=== PATIENT | female | born 1975 | race Two or more races ===

== ENCOUNTER 2022-01-26 04:35 | Emergency (ER) | payer MEDICAID ==
[~2022-01-26] VITALS: Ht 152.4 cm; Wt 73.6 kg
[2022-01-26 06:48] LABS: Basophils # (auto) 0 10 ^3/uL (0-0.2); Basophils % (auto) 0.2 % (0.0-2.0); Eosinophils # (auto) 0.1 10 ^3/uL (0-0.8); Eosinophils % (auto) 0.3 % (0.0-7.0); Hemoglobin 13.4 g/dL (12.2-16.2); Lymphocytes # (auto) 1.1 10 ^3/uL (0.4-5.4); Lymphocytes % (auto) 6.9 % (10.0-50.0); Mean Corpuscular Hemoglobin 29.4 pg (28.0-32.0); Mean Corpuscular Hgb Conc. 33.5 g/dL (32.0-36.0); Mean Corpuscular Volume 87.9 fL (80.0-100.0); Monocytes # (auto) 0.5 10 ^3/uL (0-1.3); Monocytes % (auto) 3.1 % (0.0-12.0); Neutrophils % (auto) 89.5 % (37.0-80.0); Nucleated Red Blood Cells % 0.1 %; Red Blood Cells 4.56 10^6/uL (4.0-5.20); Red Cell Distribution Width 13.3 % (11.8-14.3); White Blood Cell 15.6 10^3/uL (4.4-10.8)
[2022-01-26 07:12] LABS: Potassium 4.2 mmol/L (3.5-5.1)
[2022-01-26 07:13] LABS: Albumin 4.1 g/dL (3.4-5.0); Calcium 9.6 mg/dL (8.5-10.1)
[2022-01-26 07:22] LABS: Bilirubin, Total 0.4 mg/dL (0.2-1.0); Total Protein 8.2 g/dL (6.4-8.2)
[2022-01-26 07:51] LABS: Urine Bacteria FEW /hpf (None Seen); Urine Blood Negative /uL (Negative); Urine Hyaline Cast FEW /lpf (0 - 2); Urine Mucus FEW (None Seen); Urine Specific Gravity 1.023 (1.001-1.035); Urine WBC 7 /hpf (0 - 5)
[2022-01-26] MEDS ORDERED: NITR-87 PO (11:07)
[2022-01-26 11:15] VITALS: BP 106/78
== END 2022-01-26 11:35 | disposition home or self-care (01) ==
LOC: ER 04:35
DX: N39.0 Urinary tract infection, site not specified (principal); E78.5 Hyperlipidemia, unspecified; Z88.6 Allergy status to analgesic agent
CPT/HCPCS: 36415; 74176; 76830; 76856; 80053; 81001; 83690; 85025

== ENCOUNTER 2023-09-29 11:13 | Emergency (ER) | payer MEDICAID ==
[~2023-09-29] VITALS: Ht 152.4 cm; Wt 64.4 kg
[~2023-09-29 11:13] MED LIST: NITR-87 PO
[2023-09-29 13:05] LABS: Urine Bacteria FEW /hpf (None Seen); Urine Blood Negative /uL (Negative); Urine Clarity Clear (Clear); Urine Protein, UAD Negative (Negative); Urine Specific Gravity 1.006 (1.001-1.035); Urine Urobilinogen Normal (Negative); Urine WBC <1 /hpf (0 - 5)
[2023-09-29 13:06] LABS: Urine Color Yellow (Yellow)
[2023-09-29 13:46] LABS: Basophils # (auto) 0 10 ^3/uL (0-0.2); Basophils % (auto) 0.2 % (0.0-2.0); Eosinophils # (auto) 0.1 10 ^3/uL (0-0.8); Eosinophils % (auto) 0.6 % (0.0-7.0); Hematocrit 40.6 % (36.0-46.0); Hemoglobin 13.7 g/dL (12.2-16.2); Lymphocytes # (auto) 1.2 10 ^3/uL (0.4-5.4); Lymphocytes % (auto) 9.2 % (10.0-50.0); Mean Corpuscular Hgb Conc. 33.8 g/dL (32.0-36.0); Mean Corpuscular Volume 82.9 fL (80.0-100.0); Monocytes # (auto) 0.5 10 ^3/uL (0-1.3); Monocytes % (auto) 3.8 % (0.0-12.0); Neutrophils % (auto) 86.2 % (37.0-80.0); Nucleated Red Blood Cells % 0.1 %; White Blood Cell 12.8 10^3/uL (4.4-10.8)
[2023-09-29 13:56] LABS: Alanine Aminotransferase 34 U/L (7-40); Albumin 4.8 g/dL (3.2-4.8); Alkaline Phosphatase 91 U/L (46-116); Anion Gap 8 (5-15); Aspartate Aminotransferase 19 U/L (13-40); BUN/Creatinine Ratio 6.7 (10.0-20.0); Bilirubin, Total 0.6 mg/dL (0.2-1.0); Blood Urea Nitrogen 7 mg/dL (9-23); Calcium 9.5 mg/dL (8.7-10.4); Carbon Dioxide 23 mmol/L (20-30); Chloride 105 mmol/L (98-107); Glucose 109 mg/dL (74-106); Potassium 4.9 mmol/L (3.5-5.1); Sodium 136 mmol/L (136-145); Total Protein 7.9 g/dL (5.7-8.2)
[2023-09-29 14:47] VITALS: BP 134/89; PULSE 84; RESP 18; TEMP 99; O2SAT 99
[2023-09-29] MEDS ORDERED: OMEP-434 PO (14:53)
[2023-09-29] MEDS ORDERED: IBUP-1454 PO (14:53)
[2023-09-29] MEDS: KETOROLAC TROMETH 60MG/2ML VIAL IM ONE (15:07)
== END 2023-09-29 15:24 | disposition home or self-care (01) ==
LOC: ER 11:13
DX: K80.20 Calculus of gallbladder without cholecystitis without obstruction (principal); K42.9 Umbilical hernia without obstruction or gangrene; E78.5 Hyperlipidemia, unspecified; E07.9 Disorder of thyroid, unspecified; Z88.1 Allergy status to other antibiotic agents
CPT/HCPCS: 36415; 74176; 80053; 81001; 81025; 82962; 85025; 93005; 96372; 99285; J1885

== ENCOUNTER 2024-01-18 01:22 | Inpatient (IN) | payer MEDICAID ==
[~2024-01-18] VITALS: Ht 152.4 cm; Wt 71.1 kg
[~2024-01-18 01:22] MED LIST changes: +IBUP-1454 PO; +OMEP-434 PO
--- NOTE | 2024-01-18 01:40 | ED.PDOC ---
GI ASSESSMENT HPI Comments 48-year-old female who came to ER for abdominal pain. Patient states she has been having abdominal pain for the past week. Described pain to be intermittent, diffuse, nonradiating, associated abdominal distention, bloatedness, and associated episodes of nausea and vomiting. Patient also complaining back pains dysuria, and urinary frequency. Chief Complaint: Abdominal pain Time Seen by MD: 01:39 Primary Care Provider: HEATH Scott Notes: Nurses Notes Allergies: Coded Allergies: Aspirin (Verified Allergy, Unknown, 01/26/22) Home Meds Active Scripts Omeprazole Magnesium (Omeprazole) 20 Mg Tab, 40 MG PO DAILY, #30 TAB Prov:DAIANA LOPES 09/29/23 Ibuprofen (Ibuprofen) 600 Mg Tab, 1 TAB PO TID, #30 TAB Prov:DAIANA LOPES 09/29/23 Nitrofurantoin Monohydrate Mac (Macrobid) 100 Mg Cap, 100 MG PO BID for 7 Days, #14 CAP Prov:ED GAN MD 01/26/22 Information Source: Patient Mode of Arrival: Ambulatory Timing: Days Duration: Intermittent Prehospital treatment: None Quality: Aching Vomitus: Watery Stool: Normal Severity: Moderate Recent: None Recent Hx of: Abdominal Surgery Pain Location: Diffuse Associated sign and symptoms: Nausea, Vomiting, Abdominal Pain Past Medical History PAST MEDICAL HISTORY: Gallstones, High Lipids, Thyroid Surgical History (Other): Breast implants, abdominoplasty SALES MARKETING COORDINATOR History: No Pertinent SALES MARKETING COORDINATOR History Family History Family History: Reviewed,noncontributory to illness Social History Smoker: Non-Smoker Alcohol: Denies ETOH Use Drugs: Denies Drug Use Lives In: Home Constitutional: denies: chills, diaphoresis, fatigue, fever, malaise, sweats, weakness, others EENTM: denies: blurred vision, double vision, ear bleeding, ear discharge, ear drainage, ear pain, ear ringing, eye pain, eye redness, hearing loss, mouth pain, mouth swelling, nasal discharge, nose bleeding, nose congestion, nose pain, photophobia, tearing, throat pain, throat swelling, voice changes, others Respiratory: denies: cough, hemoptysis, orthopnea, SOB at rest, shortness of breath, SOB with excertion, stridor, wheezing, others Cardiovascular: denies: chest pain, dizzy spells, diaphoresis, Dyspnea on exertion, edema, irregular heart beat, left arm pain, lightheadedness, palpitations, PND, syncope, others Gastrointestinal: reports: abdomen distended, abdominal pain, nausea, vomiting; denies: blood streaked bowels, constipated, diarrhea, dysphagia, difficulty swallowing, hematemesis, melena, poor appetite, poor fluid intake, rectal bleeding, rectal pain, others Genitourinary: reports: dysuria, frequency; denies: abnormal vagina bleeding, burning, dyspareunia, flank pain, hematuria, incontinence, pain, , vagina discharge, urgency, others Neurological: denies: dizziness, fainting, headache, left sided numbness, left sided weakness, numbness, paresthesia, pre-existing deficit, right sided numbness, right sided weakness, seizure, speech problems, tingling, tremors, weakness, others Musculoskeletal: reports: back pain; denies: gout, joint pain, joint swelling, muscle pain, muscle stiffness, neck pain, others Integumetry: denies: bruises, change in color, change in hair/nails, dryness, laceration, lesions, lumps, rash, wounds, others Allergic/Immunocompromised: denies: Difficulty Healing, Frequent Infections, Hives, Itching, others Hematologic/Lymphatic: denies: anemia, blood clots, easy bleeding, easy bruising, swollen glands, others Endocrine: denies: excessive hunger, excessive sweating, excessive thirst, excessive urination, flushing, intolerance to cold, intolerance to heat, unexplained weight gain, unexplained weight loss, others Psychiatric: denies: anxiety, bipolar disorder, depression, hopeless, panic disorder, schizophrenia, sleepless, suicidal, others Physical Exam General Appearance: No Apparent Distress, Normal HEENT: Normal ENT Inspection, Pharynx Normal, TMs Normal Neck: Full Range of Motion, Non-Tender, Normal, Normal Inspection Respiratory: Chest Non-Tender, Lungs Clear, No Accessory Muscle Use, No Respiratory Distress, Normal Breath Sounds Cardiovascular: No Edema, No JVD, No Murmur, No Gallop, Normal Peripheral Pulses, Regular Rate/Rhythm Breast Exam: Deferred Gastrointestinal: Distended, Epigastric, No Organomegaly, No Pulsatile Mass, Normal Bowel Sounds, Soft, Tenderness Genitalia: Deferred Pelvic: Deferred Rectal: Deferred Extremities: No calf tenderness, Normal capillary refill, Normal inspection, Normal range of motion, Non-tender, No pedal edema Musculoskeletal : Apperance: Normal Neurologic: Alert, 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 Was a procedure done?: No GI differential Dx Differential Diagnosis: Cholecystitis, Constipation, Diverticular disease, Gastritis/PUD, Gastroenteritis, Pancreatitis, UTI, Urolithiasis X-Ray, Labs, Meds, VS Vital Signs Date Time Temp Pulse Resp B/P (MAP) Pulse Ox O2 Delivery O2 Flow Rate FiO2 01/18/24 03:55 76 16 128/80 (96) 99 01/18/24 03:52 78 16 128/80 01/18/24 02:41 90 16 126/79 01/18/24 02:29 99.4 90 20 126/79 (95) 98 99.4 01/18/24 02:29 90 20 98 Room Air 01/18/24 01:31 98.9 90 18 143/92 (109) 96 Lab Test 01/18/24 01:47 01/18/24 00:35 Range/Units White Blood Count 12.2 H 4.4-10.8 10^3/uL Red Blood Count 4.59 4.0-5.20 10^6/uL Hemoglobin 12.6 12.2-16.2 g/dL Hematocrit 37.4 36.0-46.0 % Mean Corpuscular Volume 81.5 80.0-100.0 fL Mean Corpuscular Hemoglobin 27.6 L 28.0-32.0 pg Mean Corpuscular Hemoglobin Concent 33.8 32.0-36.0 g/dL Red Cell Distribution Width 14.6 H 11.8-14.3 % Platelet Count 277 140-450 10^3/uL Mean Platelet Volume 8.0 6.9-10.8 fL Neutrophils (%) (Auto) 81.5 H 37.0-80.0 % Lymphocytes (%) (Auto) 12.7 10.0-50.0 % Monocytes (%) (Auto) 4.6 0.0-12.0 % Eosinophils (%) (Auto) 0.9 0.0-7.0 % Basophils (%) (Auto) 0.3 0.0-2.0 % Neutrophils # (Auto) 9.9 H 1.6-8.6 10 ^3/uL Lymphocytes # (Auto) 1.5 0.4-5.4 10 ^3/uL Monocytes # (Auto) 0.6 0-1.3 10 ^3/uL Eosinophils # (Auto) 0.1 0-0.8 10 ^3/uL Basophils # (Auto) 0 0-0.2 10 ^3/uL Nucleated Red Blood Cells 0.0 % Sodium Level 140 136-145 mmol/L Potassium Level 4.0 3.5-5.1 mmol/L Chloride Level 105 98-107 mmol/L Carbon Dioxide Level 27 20-31 mmol/L Anion Gap 8 5-15 Blood Urea Nitrogen 12 9-23 mg/dL Creatinine 1.28 H 0.550-1.02 mg/dL Glomerular Filtration Rate Calc 52 >90 mL/min BUN/Creatinine Ratio 9.4 L 10.0-20.0 Serum Glucose 135 H 74-106 mg/dL Calcium Level 9.7 8.7-10.4 mg/dL Urine Color Light-yellow Yellow Urine Clarity Clear Clear Urine pH 6.5 5.0-9.0 Urine Specific [place] 1.019 1.001-1.035 Urine Protein Negative Negative Urine Ketones Negative Negative Urine Blood 2+ H Negative /uL Urine Nitrite Negative Negative Urine Bilirubin Negative Negative Urine Urobilinogen Normal Negative mg/dL Urine Leukocyte Esterase Negative Negative /uL Urine RBC 104 0 - 4 /hpf Urine WBC 1 0 - 5 /hpf Urine Squamous Epithelial Cells Few <5 /hpf Urine Bacteria None seen None Seen /hpf Urine Glucose Normal Normal mg/dL Current Medications Medications (Trade) Dose Ordered Sig/Bakari Route Start Time Stop Time Status Last Admin Sodium Chloride 1,000 ml @ 1,000 mls/hr Q1H ONCE IV 01/18/24 01:45 01/18/24 02:44 DC 01/18/24 02:35 Ondansetron HCl (Zofran) 4 mg ONCE ONCE IV 01/18/24 01:45 01/18/24 01:46 DC 01/18/24 02:42 Morphine Sulfate 4 mg ONCE ONCE IV 01/18/24 01:45 01/18/24 01:46 DC 01/18/24 02:41 Time of 1ST Reevaluation: 01:36 Reevaluation 1ST: Unchanged Patient Education/Counseling: Diagnosis, Treatment Family Education/Counseling: No Family Present Departure 1 Departure Time of Disposition: 05:00 (Patient presented with abdominal pain that was concerning for possible appendicits, gastritis, cholecystitis, colitis, gastroenteritis, sbo, or orther possible surgical emergency. Data: 1. I ordered and reviewed the result of at least 3 labs including a CBC, BMP, and Urinalysis. 2. I independently interpreted the following tests: CT Abdoment and Pelvis is concerning for appendicolith.Risk:This patient has a high risk of morbidity due to further diagnostic testing or treatment and may suffer from an acute abdominal process disorder. Workup reveals history for he will return, UTI versus early appendicitis we will treat patient with antibiotics and patient should be admitted for further workup. and possible expert consultation. ) Impression: Primary Impression: Hematuria Qualified Codes: R31.29 - Other microscopic hematuria Additional Impressions: Acute abdominal pain Cholelithiasis Qualified Codes: K80.20 - Calculus of gallbladder without cholecystitis without obstruction Disposition: ADMITTED INPATIENT Admit to: Med Surg Condition: Serious Critical Care Note Critical Care Time?: No Stability Stability form required: No Heart Score Heart Score: Heart Score Response (Comments) Value History N/A 0 EKG N/A 0 Age N/A 0 Risk Factors N/A 0 Troponin N/A 0 Total 0 I personally scribed for CAMILLE PARK MD ([email or web address]) on 01/18/24 at 01:40. Electronically submitted by Demar Agudelo ([email or web address]). CAMILLE PARK MD Jan 18, 2024 01:40
[2024-01-18 01:48] LABS: Urine Bacteria None Seen /hpf (None Seen)
[2024-01-18 01:53] LABS: Basophils # (auto) 0 10 ^3/uL (0-0.2); Eosinophils # (auto) 0.1 10 ^3/uL (0-0.8); Mean Corpuscular Volume 81.5 fL (80.0-100.0); Red Cell Distribution Width 14.6 % (11.8-14.3)
[2024-01-18 01:55] LABS: Basophils % (auto) 0.3 % (0.0-2.0); Eosinophils % (auto) 0.9 % (0.0-7.0); Hematocrit 37.4 % (36.0-46.0); Hemoglobin 12.6 g/dL (12.2-16.2); Lymphocytes # (auto) 1.5 10 ^3/uL (0.4-5.4); Lymphocytes % (auto) 12.7 % (10.0-50.0); Mean Corpuscular Hemoglobin 27.6 pg (28.0-32.0); Mean Corpuscular Hgb Conc. 33.8 g/dL (32.0-36.0); Monocytes # (auto) 0.6 10 ^3/uL (0-1.3); Monocytes % (auto) 4.6 % (0.0-12.0); Neutrophils # (auto) 9.9 10 ^3/uL (1.6-8.6); Neutrophils % (auto) 81.5 % (37.0-80.0); Platelet Count (auto) 277 10^3/uL (140-450); Red Blood Cells 4.59 10^6/uL (4.0-5.20); White Blood Cell 12.2 10^3/uL (4.4-10.8)
[2024-01-18 02:03] LABS: Chloride 105 mmol/L (98-107); Sodium 140 mmol/L (136-145)
[2024-01-18 02:04] LABS: Anion Gap 8 (5-15); Calcium 9.7 mg/dL (8.7-10.4); Carbon Dioxide 27 mmol/L (20-31)
[2024-01-18 02:09] LABS: BUN/Creatinine Ratio 9.4 (10.0-20.0); Blood Urea Nitrogen 12 mg/dL (9-23); Glucose 135 mg/dL (74-106)
[2024-01-18 02:18] LABS: Urine Blood 2+ /uL (Negative); Urine Clarity Clear (Clear); Urine Color Light-Yellow (Yellow); Urine Protein, UAD Negative (Negative); Urine Specific Gravity 1.019 (1.001-1.035); Urine Urobilinogen Normal (Negative); Urine WBC 1 /hpf (0 - 5); Urine pH 6.5 (5.0-9.0)
[2024-01-18] MEDS: SODIUM CHLORIDE 0.9% 1,000 ML IV ONE (02:35)
[2024-01-18] MEDS: MORPHINE SULFATE 4 MG/ML SYR/VIAL IV ONE (02:41)
[2024-01-18] MEDS: ONDANSETRON HCL 4 MG/2 ML VIAL IV ONE (02:42)
--- NOTE | 2024-01-18 04:39 | DVH ---
Examination: ABPL CLINICAL INDICATION: lower abdominal pain COMPARISON: None. CONTRAST USED: None. TECHNIQUE: A plain CT study of the abdomen and pelvis is performed. The examination was performed w ith [address] scan done according to ALARA (As Low as Reasonably Achievable). Multiplana r reconstructions were obtained. FINDINGS: CT ABDOMEN: Lung Base: The evaluation of lung bases demonstrates no focal infiltrates or pleural effusion. Unenhanced Liver: The liver is normal in size. Mild hepatic steatosis. There is no intrahepatic bili jordan radicle dilatation. Gallbladder: The gallbladder is distended and shows a 25 mm sized hyperdense lamellated calculus wit hin. The common bile duct is not dilated. Unenhanced Pancreas: The pancreas is normal in size and shape. No focal lesion is seen within. Th e peripancreatic fat-planes are normal. Unenhanced Spleen: The spleen is normal in size and does not show any focal abnormality. Retroperitoneum: Both adrenal glands are normal in size and morphology in this unenhanced CT scan. There is no significant retroperitoneal lymphadenopathy. The kidneys are normal in size with no hydr onephrosis or renal calculi. Vessels: Aorta, IVC and the mesenteric vessels cannot be commented in this unenhanced CT scan. Stomach and Bowel: The bowel loops are unremarkable. There is no ascites. Small paraumbilical herni a is noted containing omental fat, size of the defect is 12 mm. Skeletal System: Dorsolumbar spine and the pelvic bone appear unremarkable. CT PELVIS: Appendix: Small subtle appendicolith noted. Colon: Multiple tiny diverticuli are seen along the ascending, transverse, descending, sigmoid colon and rectum. Bladder: The urinary bladder is unremarkable. Pelvic Organs: Uterus and both ovaries appear unremarkable. No pelvic lymphadenopathy is identified. No abnormal fluid collection is seen. IMPRESSION: 1. No abdominal mass or adenopathy. 2. No ascites. 3. No free air or inflammatory changes. 4. Cholelithiasis without evidence of cholecystitis. 5. Colonic diverticulosis without evidence of diverticulitis. 6. Mild hepatic steatosis. 7. A small paraumbilical hernia is noted containing omental fat. 8. Small subtle appendicolith noted. Electronically Signed 01/18/2024 04:30 Jose Yin
[2024-01-18] MEDS: cefTRIAXone 1GM/50ML D5W 50 ML IV ONE (05:08)
[2024-01-18] MEDS ORDERED: HYDROcodone-ACET 5/325MG TAB PO PRN (06:15)
[2024-01-18] MEDS ORDERED: ACETAMINOPHEN 325 MG TAB PO PRN (06:15)
[2024-01-18] MEDS ORDERED: DOCUSATE SOD 100 MG CAP PO PRN (06:15)
[2024-01-18] MEDS ORDERED: MORPHINE SULFATE INJ 2 MG/ml SYRG IV PRN ×2 (06:15→06:45)
[2024-01-18 06:16] VITALS: BP 115/75; PULSE 75; RESP 20; TEMP 98.3; O2SAT 96
--- NOTE | 2024-01-18 06:43 | DVHHP2 ---
History of Present Illness Reason for Visit: Acute abdominal pain History of Present Illness The patient is a 48-year-old female with past medical history of gallstone, hyperlipidemia, and thyroid disease who presented to [facility] ED with complaint of abdominal pain. Patient described pain to be intermittent, diffuse, nonradiating, associated abdominal distention, bloating, and associated episodes of nausea and vomiting, getting worse that prompted this visit. Patient was seen and evaluated in the ED, laboratory data shows WBC 12.2, platelets 277, sodium 140, potassium 4.0, BUN 12, creatinine 1.28, glucose 135, blood pressure 128/80, heart rate 76, temperature 99.4 F, O2 saturation 99% on room air. Abdomen/pelvis CT revealing cholelithiasis without evidence of cholecystitis, colonic diverticulosis without evidence of diverticulitis, mild hepatic steatosis. Please see medication orders section in the computer. On my assessment, patient denied chest pain, no headache, no dizziness, no diaphoresis, no shortness a breath, no abdominal pain, nausea, or vomiting at this moment, no fever, no chills. No other modifying factor or other associated signs and symptoms noted. Patient was admitted for further evaluation and medical management. Past Medical History Gallstones, High Lipids, Thyroid Past Surgical History Breast implants, abdominoplasty Family History Reviewed, noncontributory to the management of this case. Past Social History The patient lives at home, denies smoking, alcohol or illicit drugs abuse. Review of Systems Constitutional: No: Fever, Chills, Sweats, Weakness, Malaise, Other Eyes: No: Pain, Vision change, Conjunctivae inflammation, Eyelid inflammation, Other, Redness ENT: No: Ear pain, Ear discharge, Nose pain, Nose discharge, Nose congestion, Mouth pain, Mouth swelling, Throat pain, Throat swelling, Other Respiratory: No: Cough, Dry, Shortness of breath, SOB with excertion, Wheezing, Hemoptysis, Pleuritic Pain, Sputum, Wheezing, Other Cardiovascular: No: Chest Pain, Palpitations, Orthopnea, Paroxysmal Noc. Dyspnea, Edema, Lt Headedness, Other Gastrointestinal: Nausea, Vomiting, Abdominal Pain, Other (Distended abdomen); No: Diarrhea, Constipation, Melena, Hematochezia Genitourinary: Dysuria, Frequency; No Incontinence, No Hematuria, No Retention, No Other Musculoskeletal: back pain; No: other, neck pain, shoulder pain, arm pain, hand pain, leg pain, foot pain Skin: No: Rash, Lesions, Jaundice, Bruising, Other Neurological: No: Weakness, Numbness, Incoordination, Change in speech, Confusion, Seizures, Other Allergies: Coded Allergies: Aspirin (Verified Allergy, Unknown, 01/26/22) Medications Current Medications Medications Dose Ordered Sig/Bakari Route Start Time Stop Time Status Last Admin Dose Admin Pantoprazole Sodium 40 mg DAILY IV 01/18/24 10:00 Ceftriaxone Sodium 50 ml @ 100 mls/hr DAILY@09 IV 01/18/24 09:00 Sodium Chloride 10 ml Q8HR IV 01/18/24 14:00 Acetaminophen/ Hydrocodone Bitart 1 tab Q4HP PRN PO 01/18/24 06:15 Ondansetron HCl 4 mg Q4HP PRN IV 01/18/24 06:15 Docusate Sodium 100 mg BIDPRN PRN PO 01/18/24 06:15 Acetaminophen 650 mg Q6HP PRN PO 01/18/24 06:15 Morphine Sulfate 2 mg Q4HPRN PRN IV 01/18/24 06:15 Exam Vital Signs Vital Signs Date Time Temp Pulse Resp B/P (MAP) Pulse Ox O2 Delivery O2 Flow Rate FiO2 01/18/24 06:16 98.3 75 20 115/75 (88) 96 98.3 01/18/24 02:29 Room Air General Appearance: Alert, Oriented X3, Cooperative, No acute distress HEENT: Atraumatic, PERRLA, EOMI, Mucous membr. moist/pink Respiratory: Clear to auscultation, Normal air movement Cardiovascular: Regular rate, Normal S1, Normal S2, No murmurs Abdominal: Normal bowel sounds, Soft, No hepatospenomegaly, No masses, Other (Reports tenderness) Extremities: No clubbing, No cyanosis, No edema, Normal pulses, No tenderness/swelling Skin: No rashes, No breakdown, No significant lesion Neuro: Normal gait, Normal speech, Strength at 5/5 X4 ext, Normal tone, Sensation intact, Cranial nerves 3-12 NL, Reflexes 2+ Psych/Mental Status: Mental status NL, Mood NL Labs/Xrays Labs Test 01/18/24 01:47 01/18/24 00:35 Range/Units White Blood Count 12.2 H 4.4-10.8 10^3/uL Red Blood Count 4.59 4.0-5.20 10^6/uL Hemoglobin 12.6 12.2-16.2 g/dL Hematocrit 37.4 36.0-46.0 % Mean Corpuscular Volume 81.5 80.0-100.0 fL Mean Corpuscular Hemoglobin 27.6 L 28.0-32.0 pg Mean Corpuscular Hemoglobin Concent 33.8 32.0-36.0 g/dL Red Cell Distribution Width 14.6 H 11.8-14.3 % Platelet Count 277 140-450 10^3/uL Mean Platelet Volume 8.0 6.9-10.8 fL Neutrophils (%) (Auto) 81.5 H 37.0-80.0 % Lymphocytes (%) (Auto) 12.7 10.0-50.0 % Monocytes (%) (Auto) 4.6 0.0-12.0 % Eosinophils (%) (Auto) 0.9 0.0-7.0 % Basophils (%) (Auto) 0.3 0.0-2.0 % Neutrophils # (Auto) 9.9 H 1.6-8.6 10 ^3/uL Lymphocytes # (Auto) 1.5 0.4-5.4 10 ^3/uL Monocytes # (Auto) 0.6 0-1.3 10 ^3/uL Eosinophils # (Auto) 0.1 0-0.8 10 ^3/uL Basophils # (Auto) 0 0-0.2 10 ^3/uL Nucleated Red Blood Cells 0.0 % Sodium Level 140 136-145 mmol/L Potassium Level 4.0 3.5-5.1 mmol/L Chloride Level 105 98-107 mmol/L Carbon Dioxide Level 27 20-31 mmol/L Anion Gap 8 5-15 Blood Urea Nitrogen 12 9-23 mg/dL Creatinine 1.28 H 0.550-1.02 mg/dL Glomerular Filtration Rate Calc 52 >90 mL/min BUN/Creatinine Ratio 9.4 L 10.0-20.0 Serum Glucose 135 H 74-106 mg/dL Calcium Level 9.7 8.7-10.4 mg/dL Urine Color Light-yellow Yellow Urine Clarity Clear Clear Urine pH 6.5 5.0-9.0 Urine Specific [place] 1.019 1.001-1.035 Urine Protein Negative Negative Urine Ketones Negative Negative Urine Blood 2+ H Negative /uL Urine Nitrite Negative Negative Urine Bilirubin Negative Negative Urine Urobilinogen Normal Negative mg/dL Urine Leukocyte Esterase Negative Negative /uL Urine RBC 104 0 - 4 /hpf Urine WBC 1 0 - 5 /hpf Urine Squamous Epithelial Cells Few <5 /hpf Urine Bacteria None seen None Seen /hpf Urine Glucose Normal Normal mg/dL PATIENT: CORY YING ACCT: [id number] UNIT: [id number] : 1975 LOC: ER ROOM / BED: / AGE / SEX: 48 / F ADM STATUS: REG ER SERVICE [id number] ORDERING PHYSICIAN: CAMILLE PARK MD PROCEDURE(s): ABPL - CT AB PEL WO CON-NO ORAL OR IV REASON: lower abdominal pain ORDER NUMBER(s): [id number], ACCESSION NUMBER(s): [id number] Examination: ABPL CLINICAL INDICATION: lower abdominal pain COMPARISON: None. CONTRAST USED: None. TECHNIQUE: A plain CT study of the abdomen and pelvis is performed. The examination was performed with [address] scan done according to ALARA (As Low as Reasonably Achievable). Multiplanar reconstructions were obtained. FINDINGS: CT ABDOMEN: Lung Base: The evaluation of lung bases demonstrates no focal infiltrates or pleural effusion. Unenhanced Liver: The liver is normal in size. Mild hepatic steatosis. There is no intrahepatic biliary radicle dilatation. Gallbladder: The gallbladder is distended and shows a 25 mm sized hyperdense lamellated calculus within. The common bile duct is not dilated. Unenhanced Pancreas: The pancreas is normal in size and shape. No focal lesion is seen within. The peripancreatic fat-planes are normal. Unenhanced Spleen: The spleen is normal in size and does not show any focal abnormality. Retroperitoneum: Both adrenal glands are normal in size and morphology in this unenhanced CT scan. There is no significant retroperitoneal lymphadenopathy. The kidneys are normal in size with no hydronephrosis or renal calculi. Vessels: Aorta, IVC and the mesenteric vessels cannot be commented in this unenhanced CT scan. Stomach and Bowel: The bowel loops are unremarkable. There is no ascites. Small paraumbilical hernia is noted containing omental fat, size of the defect is 12 mm. Skeletal System: Dorsolumbar spine and the pelvic bone appear unremarkable. CT PELVIS: Appendix: Small subtle appendicolith noted. Colon: Multiple tiny diverticuli are seen along the ascending, transverse, descending, sigmoid colon and rectum. Bladder: The urinary bladder is unremarkable. Pelvic Organs: Uterus and both ovaries appear unremarkable. No pelvic lymphadenopathy is identified. No abnormal fluid collection is seen. IMPRESSION: 1. No abdominal mass or adenopathy. 2. No ascites. 3. No free air or inflammatory changes. 4. Cholelithiasis without evidence of cholecystitis. 5. Colonic diverticulosis without evidence of diverticulitis. 6. Mild hepatic steatosis. 7. A small paraumbilical hernia is noted containing omental fat. 8. Small subtle appendicolith noted. Assessment/Plan Assessment/Plan Hematuria Other microscopic hematuria Acute abdominal pain Cholelithiasis Leukocytosis, unspecified Calculus of gallbladder without cholecystitis without obstruction Plan 1. Admit to med surge unit 2. Breathing treatment 3. Pain control management 4. IV antibiotic management 5. Management of fluids and electrolytes 6. Consultation for hospitalist 7. Diagnostic test abdomen/pelvis CT 8. DVT prophylaxis-on SCDs 9. Repeat labs CBC, CMP in a.m. 10. Home medication reviewed and reconciled 11. Continue with current medical management 12. Treatment plan discussed with patient and RN. Patient verbalized understanding. Plan discussed with: Patient, Other (RN) My Orders Orders - ONEL BENAVIDES DNP Procedure Category Date Status Time Complete Blood Count LAB 01/18/24 Logged 06:08 Comprehensive LAB 01/18/24 Logged Metabolic Panel 06:08 Pantoprazole PHA 01/18/24 In Process (Protonix) 10:00 Ceftriaxone 1gm/50ml PHA 01/18/24 In Process D5w (Rocephin) 09:00 Code Status CODE 01/18/24 Transmitted 06:08 Sodium Chloride Lock PHA 01/18/24 In Process (Saline Lock Ns) 14:00 Oxygen Per Hour RT 01/18/24 Transmitted 06:08 Hydrocodone-Acet PHA 01/18/24 In Process 5/325mg Tab ([place] 06:15 Ondansetron Hcl PHA 01/18/24 In Process (Zofran) 06:15 Docusate Sodium PHA 01/18/24 In Process Capsule (Colace 06:15 Complete Blood Count LAB 01/19/24 Verified 04:00 Comprehensive LAB 01/19/24 Verified Metabolic Panel 04:00 Condition: Serious CARMITA 01/18/24 In Process 06:08 Acetaminophen Tablet PHA 01/18/24 In Process (Tylenol Tablet) 06:15 Clear Liq Diet DIET 01/18/24 Transmitted Breakfast Bedrest With Bathroom [facility] 01/18/24 In Process Privileg 06:08 Morphine Sulfate [facility] 01/18/24 In Process Injection 06:15 Sequential [facility] 01/18/24 In Process Compression Device Hemoglobin A1c LAB 01/18/24 Logged 06:08 Allergies [facility] 01/18/24 In Process 06:08 Problem List: (1) Hematuria (2) Acute abdominal pain (3) Cholelithiasis (4) Other microscopic hematuria (5) Leukocytosis, unspecified (6) Calculus of gallbladder without cholecystitis without obstruction Date of Service: Jan 18, 2024 Billing Provider: ONEL BENAVIDES DNP Common Visit Codes: 81883-[id number] INP/OBS CARE (HIGH) ONEL BENAVIDES DNP Jan 18, 2024 06:42
[2024-01-18] MEDS ORDERED: NITROGLYCERIN 0.4 MG SL TAB SL PRN (06:45)
[2024-01-18 06:58] LABS: Basophils # (auto) 0 10 ^3/uL (0-0.2); Basophils % (auto) 0.3 % (0.0-2.0); Eosinophils # (auto) 0 10 ^3/uL (0-0.8); Eosinophils % (auto) 0.3 % (0.0-7.0); Hematocrit 36.6 % (36.0-46.0); Hemoglobin 12.3 g/dL (12.2-16.2); Lymphocytes # (auto) 1.2 10 ^3/uL (0.4-5.4); Lymphocytes % (auto) 11.1 % (10.0-50.0); Mean Corpuscular Hemoglobin 27.7 pg (28.0-32.0); Mean Corpuscular Hgb Conc. 33.8 g/dL (32.0-36.0); Monocytes # (auto) 0.3 10 ^3/uL (0-1.3); Neutrophils # (auto) 9.3 10 ^3/uL (1.6-8.6); Neutrophils % (auto) 85.3 % (37.0-80.0); Platelet Count (auto) 252 10^3/uL (140-450); Red Blood Cells 4.46 10^6/uL (4.0-5.20); Red Cell Distribution Width 14.6 % (11.8-14.3); White Blood Cell 10.9 10^3/uL (4.4-10.8)
[2024-01-18 07:07] LABS: Alanine Aminotransferase 16 U/L (7-40); Albumin 4.3 g/dL (3.2-4.8); Alkaline Phosphatase 65 U/L (46-116); Anion Gap 9 (5-15); Aspartate Aminotransferase 11 U/L (13-40); BUN/Creatinine Ratio 10.3 (10.0-20.0); Bilirubin, Total 0.5 mg/dL (0.2-1.0); Blood Urea Nitrogen 12 mg/dL (9-23); Calcium 9.3 mg/dL (8.7-10.4); Carbon Dioxide 24 mmol/L (20-31); Chloride 108 mmol/L (98-107); Glucose 124 mg/dL (74-106); Potassium 4.7 mmol/L (3.5-5.1); Sodium 141 mmol/L (136-145); Total Protein 7.3 g/dL (5.7-8.2)
[2024-01-18 07:55] VITALS: BP 98/64; PULSE 68; RESP 18; TEMP 98.4; O2SAT 98
[2024-01-18] MEDS: cefTRIAXone 1GM/50ML D5W 50 ML IV SCH (09:00)
[2024-01-18] MEDS: PANTOPRAZOLE 40 MG/10 ML VIAL INJ IV SCH (10:09)
[2024-01-18] MEDS: ONDANSETRON HCL 4 MG/2 ML VIAL IV PRN (10:09)
[2024-01-18 12:30] VITALS: BP 99/62; PULSE 67; RESP 18; TEMP 98.7; O2SAT 99
[2024-01-18] MEDS: SODIUM CHLOR 0.9% PF (SALINE LOCK) 10ML VIAL/SYR IV SCH (13:09)
[2024-01-18 16:41] VITALS: BP 115/77; PULSE 70; RESP 20; TEMP 99; O2SAT 96
[2024-01-18 21:54] VITALS: BP 120/72; PULSE 67; RESP 18; TEMP 98.8; O2SAT 99
[2024-01-19 01:00] VITALS: BP 93/47; PULSE 76; RESP 16; TEMP 97.2; O2SAT 96
[2024-01-19 05:00] VITALS: BP 103/62; PULSE 89; RESP 16; TEMP 97.5; O2SAT 92
[2024-01-19 06:02] LABS: Basophils # (auto) 0 10 ^3/uL (0-0.2); Basophils % (auto) 0.6 % (0.0-2.0); Eosinophils # (auto) 0.2 10 ^3/uL (0-0.8); Hematocrit 33.8 % (36.0-46.0); Hemoglobin 11.4 g/dL (12.2-16.2); Lymphocytes # (auto) 1.6 10 ^3/uL (0.4-5.4); Lymphocytes % (auto) 27.3 % (10.0-50.0); Mean Corpuscular Hemoglobin 27.7 pg (28.0-32.0); Mean Corpuscular Hgb Conc. 33.6 g/dL (32.0-36.0); Mean Corpuscular Volume 82.5 fL (80.0-100.0); Monocytes # (auto) 0.4 10 ^3/uL (0-1.3); Monocytes % (auto) 6.4 % (0.0-12.0); Neutrophils # (auto) 3.7 10 ^3/uL (1.6-8.6); Neutrophils % (auto) 62.7 % (37.0-80.0); Platelet Count (auto) 222 10^3/uL (140-450); Red Cell Distribution Width 15.1 % (11.8-14.3); White Blood Cell 5.9 10^3/uL (4.4-10.8)
[2024-01-19 06:29] LABS: Alanine Aminotransferase 12 U/L (7-40); Albumin 3.9 g/dL (3.2-4.8); Alkaline Phosphatase 55 U/L (46-116); Anion Gap 6 (5-15); Aspartate Aminotransferase 9 U/L (13-40); BUN/Creatinine Ratio 8.9 (10.0-20.0); Blood Urea Nitrogen 11 mg/dL (9-23); Calcium 8.9 mg/dL (8.7-10.4); Carbon Dioxide 27 mmol/L (20-31); Chloride 109 mmol/L (98-107); Glucose 111 mg/dL (74-106); Potassium 4.1 mmol/L (3.5-5.1); Sodium 142 mmol/L (136-145)
[2024-01-19 06:30] LABS: Bilirubin, Total 0.5 mg/dL (0.2-1.0); Total Protein 6.5 g/dL (5.7-8.2)
[2024-01-19 08:39] VITALS: BP 101/63; PULSE 77; RESP 20; TEMP 98; O2SAT 97
[2024-01-19 10:07] LABS: INR 1.05 (0.9-1.15); Partial Thromboplastin Time 27.9 SEC (24.5-34.5); Prothrombin Time 11.1 sec (9.3-11.8)
--- NOTE | 2024-01-19 10:44 | DVHINCON2 ---
Date of service: Jan 18, 2024 History of Present Illness 48 yo female who presents to hospital due to lower quadrant abd pain, suprapubic pressure, dysuria and frequency. Pt had some nausea as well. Denies ruq pain, denies postprandial ruq pain, denies epigastric pain denies upper back pain. pt tolerated clear liquids Past Medical History HPL, thyroid Past Surgical History abdominoplasty, breast aug Family History: Patient reports no known family medical history. Allergies: Coded Allergies: Aspirin (Verified Allergy, Unknown, 01/26/22) Home Meds Active Scripts Omeprazole Magnesium (Omeprazole) 20 Mg Tab, 40 MG PO DAILY, #30 TAB Prov:DAIANA LOPES 09/29/23 Current Medications Current Medications Medications (Trade) Dose Ordered Sig/Bakari Route PRN Reason Start Time Stop Time Status Last Admin Sodium Chloride (Saline Lock Ns) 10 ml Q8HR IV 01/18/24 14:00 01/18/24 22:00 Levothyroxine Sodium (Synthroid Tablet) 50 mcg QAM@0600 PO 01/20/24 06:00 Review of Systems neg unless mentioned in hpi Vital Signs Vital Signs Date Time Temp Pulse Resp B/P (MAP) Pulse Ox O2 Delivery O2 Flow Rate FiO2 01/19/24 08:39 98.0 77 20 101/63 (76) 97 98.0 01/18/24 21:54 Room Air* 0 21 Physical Exam gen; aaox3,nad cvs; [id number] lung; normal effort abd; soft nd mildly ttp in suprapubic region no r r g, no murphys sign ext; no edema Labs/Diagnostic Data Labs Test 01/19/24 09:37 01/19/24 05:34 01/18/24 06:25 01/18/24 00:35 Range/Units Prothrombin Time 11.1 9.3-11.8 sec Prothrombin Time INR 1.05 0.9-1.15 Activated Partial Thromboplast Time 27.9 24.5-34.5 SEC White Blood Count 5.9 # 4.4-10.8 10^3/uL Red Blood Count 4.10 4.0-5.20 10^6/uL Hemoglobin 11.4 L 12.2-16.2 g/dL Hematocrit 33.8 L 36.0-46.0 % Mean Corpuscular Volume 82.5 80.0-100.0 fL Mean Corpuscular Hemoglobin 27.7 L 28.0-32.0 pg Mean Corpuscular Hemoglobin Concent 33.6 32.0-36.0 g/dL Red Cell Distribution Width 15.1 H 11.8-14.3 % Platelet Count 222 140-450 10^3/uL Mean Platelet Volume 8.2 6.9-10.8 fL Neutrophils (%) (Auto) 62.7 37.0-80.0 % Lymphocytes (%) (Auto) 27.3 10.0-50.0 % Monocytes (%) (Auto) 6.4 0.0-12.0 % Eosinophils (%) (Auto) 3.0 0.0-7.0 % Basophils (%) (Auto) 0.6 0.0-2.0 % Neutrophils # (Auto) 3.7 1.6-8.6 10 ^3/uL Lymphocytes # (Auto) 1.6 0.4-5.4 10 ^3/uL Monocytes # (Auto) 0.4 0-1.3 10 ^3/uL Eosinophils # (Auto) 0.2 0-0.8 10 ^3/uL Basophils # (Auto) 0 0-0.2 10 ^3/uL Nucleated Red Blood Cells 0.0 % Sodium Level 142 136-145 mmol/L Potassium Level 4.1 3.5-5.1 mmol/L Chloride Level 109 H 98-107 mmol/L Carbon Dioxide Level 27 20-31 mmol/L Anion Gap 6 5-15 Blood Urea Nitrogen 11 9-23 mg/dL Creatinine 1.24 H 0.550-1.02 mg/dL Glomerular Filtration Rate Calc 54 >90 mL/min BUN/Creatinine Ratio 8.9 L 10.0-20.0 Serum Glucose 111 H 74-106 mg/dL Calcium Level 8.9 8.7-10.4 mg/dL Total Bilirubin 0.5 0.2-1.0 mg/dL Aspartate Amino Transferase (AST) 9 L 13-40 U/L Alanine Aminotransferase (ALT) 12 7-40 U/L Alkaline Phosphatase 55 46-116 U/L Total Protein 6.5 5.7-8.2 g/dL Albumin 3.9 3.2-4.8 g/dL Hemoglobin A1c 5.9 H <5.7 % A1C Urine Color Light-yellow Yellow Urine Clarity Clear Clear Urine pH 6.5 5.0-9.0 Urine Specific [place] 1.019 1.001-1.035 Urine Protein Negative Negative Urine Ketones Negative Negative Urine Blood 2+ H Negative /uL Urine Nitrite Negative Negative Urine Bilirubin Negative Negative Urine Urobilinogen Normal Negative mg/dL Urine Leukocyte Esterase Negative Negative /uL Urine RBC 104 0 - 4 /hpf Urine WBC 1 0 - 5 /hpf Urine Squamous Epithelial Cells Few <5 /hpf Urine Bacteria None seen None Seen /hpf Urine Glucose Normal Normal mg/dL Assessment 48 yo female with cholelithiasis, uti Plan/Recommendation pts symptoms are from uti advance diet to regular continue abx upon dc for 1 week fu outpt to discuss elective cholecystectomy, however pts history is asymptomatic er precautions ok to dc from surg standpoint Plan discussed with: Patient, Other (dr chavez) CUONG BAKER MD Jan 19, 2024 10:44
[2024-01-19] MEDS: LEVOTHYROXINE SODIUM 50 MCG TAB PO ONE (10:45)
--- NOTE | 2024-01-19 10:45 | DVHPN2 ---
Progress Note Date Seen: Jan 19, 2024 Medical Necessity Reason Pt with a Central, PICC or Fol: No Subjective Review of Systems neg unless mentioned in hpi Patient reports: Feels better Objective vital signs Vital Sign Date Time Temp Pulse Resp B/P (MAP) Pulse Ox O2 Delivery O2 Flow Rate FiO2 01/19/24 08:39 98.0 77 20 101/63 (76) 97 98.0 01/18/24 21:54 Room Air* 0 21 Total Intake and Output 01/18/24 01/18/24 01/19/24 15:00 23:00 07:00 Intake Total 50 ml Balance 50 ml medications Current Medications Medications Dose Ordered Sig/Bakari Route Start Time Stop Time Status Last Admin Dose Admin Pantoprazole Sodium 40 mg DAILY IV 01/18/24 10:00 01/18/24 10:09 Ceftriaxone Sodium 50 ml @ 100 mls/hr DAILY@09 IV 01/18/24 09:00 01/18/24 09:00 Sodium Chloride 10 ml Q8HR IV 01/18/24 14:00 01/18/24 22:00 Acetaminophen/ Hydrocodone Bitart 1 tab Q4HP PRN PO 01/18/24 06:15 Ondansetron HCl 4 mg Q4HP PRN IV 01/18/24 06:15 01/18/24 10:09 Docusate Sodium 100 mg BIDPRN PRN PO 01/18/24 06:15 Acetaminophen 650 mg Q6HP PRN PO 01/18/24 06:15 Morphine Sulfate 2 mg Q4HPRN PRN IV 01/18/24 06:15 Nitroglycerin 0.4 mg Q5MINP PRN SL 01/18/24 06:45 Morphine Sulfate 2 mg Q30M PRN IV 01/18/24 06:45 Levothyroxine Sodium 50 mcg QAM@0600 PO 01/20/24 06:00 Examination gen; aaox3,nad cvs; [id number] lung; normal effort abd; soft nd mild ttp in suprapubic no r r q, neg murphys sign ext; no edema laboratory and microbiology Laboratory Tests 01/19/24 05:34 Test 01/19/24 05:34 Range/Units Serum Glucose 111 H 74-106 mg/dL Problem List/Assessment/Plan Plan discussed with: Patient CUONG BAKER MD Jan 19, 2024 10:45
[2024-01-19 13:13] VITALS: BP 106/65; PULSE 68; RESP 20; TEMP 98.2; O2SAT 97
--- NOTE | 2024-01-19 15:26 | DVHPN2 ---
Reviewed: Care Plan, H&P Changes from previous H/P or p: No Changes General: Per HPI Eyes: No Pain, No Vision change, No Conjunctivae inflammation, No Eyelid inflammation, No Other, No Redness ENT: No Ear pain, No Ear discharge, No Nose pain, No Nose discharge, No Nose congestion, No Mouth pain, No Mouth swelling, No Throat pain, No Throat swelling, No Other Cardiovascular: No Chest Pain, No Palpitations, No Orthopnea, No Paroxysmal Noc. Dyspnea, No Edema, No Lt Headedness, No Other Respiratory: No Cough, No Dry, No Shortness of breath, No SOB with excertion, No Wheezing, No Hemoptysis, No Pleuritic Pain, No Sputum, No Other Gastrointestinal: Nausea, Vomiting, Abdominal Pain; No Diarrhea, No Constipation, No Melena, No Hematochezia; Other (Distended abdomen) Genitourinary: Dysuria, Frequency; No Incontinence, No Hematuria, No Retention, No Other Musculoskeletal: No other, No neck pain, No shoulder pain, No arm pain; back pain; No hand pain, No leg pain, No foot pain Skin: No Rash, No Lesions, No Jaundice, No Bruising, No Other Objective Vitals Vital Signs Date Time Temp Pulse Resp B/P (MAP) Pulse Ox O2 Delivery O2 Flow Rate FiO2 01/19/24 13:13 98.2 68 20 106/65 (79) 97 98.2 01/18/24 21:54 Room Air* 0 21 Intake/Output Intake and Output 01/19/24 07:00 Intake Total 50 ml Balance 50 ml Intake IV Total 50 ml # Voids 2 Medications Current Medications Medications Dose Ordered Sig/Bakari Route Start Time Stop Time Status Last Admin Dose Admin Pantoprazole Sodium 40 mg DAILY IV 01/18/24 10:00 01/19/24 10:45 40 MG Ceftriaxone Sodium 50 ml @ 100 mls/hr DAILY@09 IV 01/18/24 09:00 01/19/24 10:45 100 MLS/HR Sodium Chloride 10 ml Q8HR IV 01/18/24 14:00 01/19/24 14:00 10 ML Acetaminophen/ Hydrocodone Bitart 1 tab Q4HP PRN PO 01/18/24 06:15 Ondansetron HCl 4 mg Q4HP PRN IV 01/18/24 06:15 01/18/24 10:09 4 MG Docusate Sodium 100 mg BIDPRN PRN PO 01/18/24 06:15 Acetaminophen 650 mg Q6HP PRN PO 01/18/24 06:15 Morphine Sulfate 2 mg Q4HPRN PRN IV 01/18/24 06:15 Nitroglycerin 0.4 mg Q5MINP PRN SL 01/18/24 06:45 Morphine Sulfate 2 mg Q30M PRN IV 01/18/24 06:45 Levothyroxine Sodium 50 mcg QAM@0600 PO 01/20/24 06:00 Laboratory Results Laboratory Tests 01/19/24 05:34 Chemistry Test 01/19/24 05:34 Albumin 3.9 g/dL (3.2-4.8) Calcium Level 8.9 mg/dL (8.7-10.4) Total Protein 6.5 g/dL (5.7-8.2) Coagulation Test 01/19/24 09:37 Prothrombin Time 11.1 sec (9.3-11.8) Prothrombin Time INR 1.05 (0.9-1.15) Activated Partial Thromboplast Time 27.9 SEC (24.5-34.5) LFT Test 01/19/24 05:34 Alanine Aminotransferase (ALT) 12 U/L (7-40) Alkaline Phosphatase 55 U/L (46-116) Aspartate Amino Transferase (AST) 9 U/L (13-40) L Total Bilirubin 0.5 mg/dL (0.2-1.0) Urinalysis Test 01/18/24 00:35 Urine Color Light-yellow (Yellow) Urine Clarity Clear (Clear) Urine pH 6.5 (5.0-9.0) Urine Specific [place] 1.019 (1.001-1.035) Urine Protein Negative (Negative) Urine Ketones Negative (Negative) Urine Blood 2+ /uL (Negative) H Urine Nitrite Negative (Negative) Urine Bilirubin Negative (Negative) Urine Urobilinogen Normal mg/dL (Negative) Urine Leukocyte Esterase Negative /uL (Negative) Urine RBC 104 /hpf (0 - 4) Urine WBC 1 /hpf (0 - 5) Urine Squamous Epithelial Cells Few /hpf (<5) Urine Bacteria None seen /hpf (None Seen) Urine Glucose Normal mg/dL (Normal) Assessment/Plan Assessment/Plan The patient is a 48-year-old female with past medical history of gallstone, hyperlipidemia, and thyroid disease who presented to [facility] ED with complaint of abdominal pain. Patient described pain to be intermittent, diffuse, nonradiating, associated abdominal distention, bloating, and associated episodes of nausea and vomiting, getting worse that prompted this visit. Patient was seen and evaluated in the ED, laboratory data shows WBC 12.2, platelets 277, sodium 140, potassium 4.0, BUN 12, creatinine 1.28, glucose 135, blood pressure 128/80, heart rate 76, temperature 99.4 F, O2 saturation 99% on room air. Abdomen/pelvis CT revealing cholelithiasis without evidence of cholecystitis, colonic diverticulosis without evidence of diverticulitis, mild hepatic steatosis. Please see medication orders section in the computer. On my assessment, patient denied chest pain, no headache, no dizziness, no diaphoresis, no shortness a breath, no abdominal pain, nausea, or vomiting at th 1) Hematuria (2) Acute abdominal pain (3) Cholelithiasis (4) Other microscopic hematuria (5) Leukocytosis, unspecified (6) Calculus of gallbladder without cholecystitis without obstruction awaiting evaluation by [facility] Surg Plan discussed with: Patient My Orders Orders - JERAD PARRA DO Procedure Category Date Status Time * Surgical Consult CONS 01/18/24 Transmitted Levothyroxine Tablet PHA 01/20/24 In Process (Synthroid Tablet) 06:00 Date of Service: Jan 19, 2024 Billing Provider: JERAD PARRA DO Common Visit Codes: [id number] INP/OBS CARE(HIGH) JERAD PARRA DO Jan 19, 2024 15:26
--- NOTE | 2024-01-19 15:44 | DVHDS2 ---
Discharge Summary Date of Admission Jan 18, 2024 at 06:42 Date of Discharge: Jan 19, 2024 Labs/Diagnostic Data: Laboratory Results Test 01/19/24 09:37 01/19/24 05:34 01/18/24 06:25 01/18/24 00:35 Prothrombin Time 11.1 sec (9.3-11.8) Prothrombin Time INR 1.05 (0.9-1.15) Activated Partial Thromboplast Time 27.9 SEC (24.5-34.5) White Blood Count 5.9 10^3/uL (4.4-10.8) Red Blood Count 4.10 10^6/uL (4.0-5.20) Hemoglobin 11.4 g/dL (12.2-16.2) Hematocrit 33.8 % (36.0-46.0) Mean Corpuscular Volume 82.5 fL (80.0-100.0) Mean Corpuscular Hemoglobin 27.7 pg (28.0-32.0) Mean Corpuscular Hemoglobin Concent 33.6 g/dL (32.0-36.0) Red Cell Distribution Width 15.1 % (11.8-14.3) Platelet Count 222 10^3/uL (140-450) Mean Platelet Volume 8.2 fL (6.9-10.8) Neutrophils (%) (Auto) 62.7 % (37.0-80.0) Lymphocytes (%) (Auto) 27.3 % (10.0-50.0) Monocytes (%) (Auto) 6.4 % (0.0-12.0) Eosinophils (%) (Auto) 3.0 % (0.0-7.0) Basophils (%) (Auto) 0.6 % (0.0-2.0) Neutrophils # (Auto) 3.7 10 ^3/uL (1.6-8.6) Lymphocytes # (Auto) 1.6 10 ^3/uL (0.4-5.4) Monocytes # (Auto) 0.4 10 ^3/uL (0-1.3) Eosinophils # (Auto) 0.2 10 ^3/uL (0-0.8) Basophils # (Auto) 0 10 ^3/uL (0-0.2) Nucleated Red Blood Cells 0.0 % Sodium Level 142 mmol/L (136-145) Potassium Level 4.1 mmol/L (3.5-5.1) Chloride Level 109 mmol/L (98-107) Carbon Dioxide Level 27 mmol/L (20-31) Anion Gap 6 (5-15) Blood Urea Nitrogen 11 mg/dL (9-23) Creatinine 1.24 mg/dL (0.550-1.02) Glomerular Filtration Rate Calc 54 mL/min (>90) BUN/Creatinine Ratio 8.9 (10.0-20.0) Serum Glucose 111 mg/dL (74-106) Calcium Level 8.9 mg/dL (8.7-10.4) Total Bilirubin 0.5 mg/dL (0.2-1.0) Aspartate Amino Transferase (AST) 9 U/L (13-40) Alanine Aminotransferase (ALT) 12 U/L (7-40) Alkaline Phosphatase 55 U/L (46-116) Total Protein 6.5 g/dL (5.7-8.2) Albumin 3.9 g/dL (3.2-4.8) Hemoglobin A1c 5.9 % A1C (<5.7) Urine Color Light-yellow (Yellow) Urine Clarity Clear (Clear) Urine pH 6.5 (5.0-9.0) Urine Specific [place] 1.019 (1.001-1.035) Urine Protein Negative (Negative) Urine Ketones Negative (Negative) Urine Blood 2+ /uL (Negative) Urine Nitrite Negative (Negative) Urine Bilirubin Negative (Negative) Urine Urobilinogen Normal mg/dL (Negative) Urine Leukocyte Esterase Negative /uL (Negative) Urine RBC 104 /hpf (0 - 4) Urine WBC 1 /hpf (0 - 5) Urine Squamous Epithelial Cells Few /hpf (<5) Urine Bacteria None seen /hpf (None Seen) Urine Glucose Normal mg/dL (Normal) Other Laboratory Tests 01/19/24 05:34 Brief Hx & Hospital Course: The patient is a 48-year-old female with past medical history of gallstone, hyperlipidemia, and thyroid disease who presented to [facility] ED with complaint of abdominal pain. Patient described pain to be intermittent, diffuse, nonradiating, associated abdominal distention, bloating, and associated episodes of nausea and vomiting, getting worse that prompted this visit. Patient was seen and evaluated in the ED, laboratory data shows WBC 12.2, platelets 277, sodium 140, potassium 4.0, BUN 12, creatinine 1.28, glucose 135, blood pressure 128/80, heart rate 76, temperature 99.4 F, O2 saturation 99% on room air. Abdomen/pelvis CT revealing cholelithiasis without evidence of cholecystitis, colonic diverticulosis without evidence of diverticulitis, mild hepatic steatosis. Please see medication orders section in the computer. On my assessment, patient denied chest pain, no headache, no dizziness, no diaphoresis, no shortness a breath, no abdominal pain, nausea, or vomiting at this moment, no fever, no chills. No other modifying factor or other associated signs and symptoms noted. Patient was admitted for further evaluation and medical management. Hematuria Other microscopic hematuria Acute abdominal pain Cholelithiasis Leukocytosis, unspecified Calculus of gallbladder without cholecystitis without obstruction cleared for discharge by Gen Surg Condition at Discharge: Fair Final Diagnosis/Problems List see above Discharge Disposition: Home Discharge Statement: "Patient was advised to return to the ER or call 911 if any headaches, dizziness, shortness of breath, chest pain, abdominal pain, bleeding, fevers, or worsening of medical condition. Patient was counseled about treatment plan, medications, possible side effects, patientverbalized understanding. All questions were answered to the best of my ability. This discharge took greater then 30 minutes in planning, reviewing documentation, counseling the patient, and discussing with other team members." ASSESSMENT ASSESSMENT Assessment JERAD PARRA DO Jan 19, 2024 15:44
[2024-01-19] MEDS ORDERED: METR-344 PO (15:45)
[2024-01-19 16:47] VITALS: BP 115/70; PULSE 76; RESP 20; TEMP 99.1; O2SAT 96
[2024-01-20] MEDS ORDERED: LEVOTHYROXINE SODIUM 50 MCG TAB PO SCH (06:00)
== END 2024-01-19 17:35 | disposition home or self-care (01) ==
LOC: ER 01:22 → OVERFLOW 06:42 → EAST 21:25
PROVIDERS: ADMIT Nurse Practitioner Family; ATTEND Internal Medicine
DX: K80.20 Calculus of gallbladder without cholecystitis without obstruction (principal); D72.829 Elevated white blood cell count, unspecified; E78.5 Hyperlipidemia, unspecified; N39.0 Urinary tract infection, site not specified; R31.29 Other microscopic hematuria; Z88.6 Allergy status to analgesic agent; Z98.82 Breast implant status; Z79.899 Other long term (current) drug therapy; K57.30 Diverticulosis of large intestine without perforation or abscess without bleeding
CPT/HCPCS: 36415; 74176; 80048; 80053; 81001; 83036; 85025; 85610; 85730; 96361; 96365; 96366; 96375; 96376; G0378; J2405; J2470